=== PATIENT | female | born 1940 ===

== ENCOUNTER 2025-04-18 16:03 | Outpatient (REF) | payer MEDICARE, BC, SELFPAY ==
[2025-04-18 16:54] LABS: Anion Gap 6.8 mmol/L (3-11); BUN 20 mg/dL (7-18); CO2 31.2 mmol/L (21.0-32.0); Calcium 9.3 mg/dL (8.5-10.1); Chloride 105 mmol/L (98-107); Estimated GFR 71.27 (mL/min/1.73m2); Glucose 90 mg/dL (74-106); Potassium 4.3 mmol/L (3.5-5.1); Sodium 143 mmol/L (136-145); Vitamin B12 278 pg/mL (193-986); Vitamin D 25 Total 28 ng/mL (30-100)
== END 2025-04-18 16:04 | disposition home or self-care (01) ==
LOC: NCHCN 16:03
PROVIDERS: Visit Provider Nurse Practitioner Family
DX: E55.9 Vitamin D deficiency, unspecified (principal); E53.8 Deficiency of other specified B group vitamins; I10 Essential (primary) hypertension
CPT/HCPCS: 80048; 82306; 82607